=== PATIENT | male | born 1940 | race Caucasian/White ===

== ENCOUNTER 2017-10-08 20:58 | Emergency (ER) | payer OTHER, MEDICARE ==
--- NOTE | 2017-10-08 21:10 | PDOC ---
History of Present Illness - General Stated Complaint: FELL, STRUCK HEAD Time Seen by Provider: 10/08/17 21:06 History Source: Patient Exam Limitations: No Limitations - History of Present Illness Initial Comments: 10/08/17 21:38 This is a 77-year-old male who was ambulating outside when he tripped on a uneven sidewalk and fell striking his right forehead area on the ground. Patient did not pass out. Patient denies any headache, nausea, neck pain or any other injuries. Patient denies any weakness or dizziness, chest pain or difficulty concentrating. Patient is not on any blood thinners. PAST MEDICAL HISTORY: no significant history PAST SURGICAL HISTORY: no significant history FAMILY HISTORY: no pertinant history SOCIAL HISTORY: Pt lives with family and is employed. MEDICATIONS: reviewed ALLERGIES: As per nursing notes Review of Systems General: No fevers or chills, no weakness, no weight loss HEENT: No change in vision. No sore throat,. No ear pain CardioVascular: No chest pain or shortness of breath Respiratory:No cough, or wheezing. Gastrointestinal: no nausea, vomitting, diarrhea or constipation, No rectal bleeding Genitourinary: No dysuria, hematuria, or frequency Musculoskeletal: No joint or muscle pain or swelling Neurologic: No headache, vertigo, dizziness or loss of consciousness Psychiatric: nor depression Skin: No rashes or easy bruising Endocrine: no increased thirst or abnormal weight change Allergic: no skin or latex allergy All other systems reviewed and normal GENERAL: The patient is awake, alert, and fully oriented, in no acute distress. HEAD: There is a contusion and abrasion over the right eyebrow area there is no active bleeding there is no bony tenderness of the orbits Cervical spine: There is non-tenderness on palpation of the cervical spine diffusely there is full range of motion without pain EYES: Pupils equal, round and reactive to light, extraocular movements intact, sclera anicteric, conjunctiva clear. EXTREMITIES: Normal range of motion, no edema. NEUROLOGICAL: Normal speech, normal gait. grossly intact PSYCH: Normal mood, normal affect. SKIN: Warm, Dry, normal turgor, no rashes or lesions noted. 10/08/17 22:[address] negative for any acute intercranial pathology Assessment and plan: This is a 77-year-old male who had a mechanical trip and fall and hit his head. Patient was updated with his tetanus shot and head CT was done which was negative. Patient's family given head injury discharge instructions and patient discharged home. Past History - Past Medical History Allergies/Adverse Reactions: Allergies Allergy/AdvReac Type Severity Reaction Status Date / Time Penicillins Allergy Verified 10/08/17 21:06 tetracycline [Tetracycline] Allergy Verified 10/08/17 21:06 Home Medications: Ambulatory Orders Hydrochlorothiazide [Hctz] 12.5 mg PO DAILY 11/06/12 Imipramine HCl [Tofranil] 50 mg PO HS 11/06/12 Alprazolam [Xanax] 1 mg PO HS 10/08/17 Finasteride 5 mg PO DAILY 10/08/17 Metoprolol Succinate [Toprol Xl] 25 mg PO DAILY 10/08/17 Tamsulosin HCl [Flomax] 0.4 mg PO DAILY 10/08/17 Cancer: Yes (BLADDER) HTN: Yes - Surgical History Cholecystectomy: Yes - Suicide/Smoking/Psychosocial Hx Smoking Status: No Smoking History: Former smoker Number of Cigarettes Smoked Daily: 0 *DC/Admit/Observation/Transfer Diagnosis at time of Disposition: Forehead contusion Qualifiers: Encounter type: initial encounter Qualified Code(s): S00.83XA - Contusion of other part of head, initial encounter Abrasion of forehead Qualifiers: Encounter type: initial encounter Qualified Code(s): S00.81XA - Abrasion of other part of head, initial encounter - Discharge Dispostion Disposition: HOME Condition at time of disposition: Good Admit: No - Referrals Referrals: [facility] [Primary Care Provider] - - Patient Instructions Additional Instructions: Someone should check on you once tonight during the night. You should be arousable to your Normal level of arousability for that time of the night. If you have been vomiting, have had a seizure, or you are unable to be aroused or the person checking on you is concerned that there has been a change in your mental status they should call 911 and have you brought back to the emergency department. You can take Tylenol as needed for pain. Return to the emergency department immediately with ANY new, persistent or worsening symptoms. Continue any medications as previously prescribed by your physician. You should follow up with your primary doctor as soon as possible regarding today's emergency department visit. . Please make sure your doctor reviews the results of your emergency evaluation. Thank you for coming to the Emergency Department today for your care. It was a pleasure to see you today. Please note that your evaluation is INCOMPLETE until you follow-up with your doctor. - Post Discharge Activity
[2017-10-08 21:13] VITALS: BP 170/68; PULSE 73; TEMP 98.2; BMI 25.4
[2017-10-08] MEDS ORDERED: DIPHTH,PERTUSS(ACELL),TET 0.5 ML DISP.SYRIN IM ONE (22:14)
== END 2017-10-08 22:23 | disposition home or self-care (01) ==
LOC: FER 20:58
PROC: 3E0234Z Introduction of Serum, Toxoid and Vaccine into Muscle, Percutaneous Approach (ICD-10-PCS; principal; 2017-10-08)
DX: S00.83XA Contusion of other part of head, initial encounter (principal); S00.81XA Abrasion of other part of head, initial encounter; W18.39XA Other fall on same level, initial encounter; Y92.410 Unspecified street and highway as the place of occurrence of the external cause; Y93.89 Activity, other specified; Z87.891 Personal history of nicotine dependence; I10 Essential (primary) hypertension; Z85.51 Personal history of malignant neoplasm of bladder
CPT/HCPCS: 70450-TC; 90715; 99281-25

== ENCOUNTER 2019-04-06 05:55 | Inpatient (IN) | payer OTHER, MEDICARE ==
[2019-03-29 12:19] VITALS: BMI 26.7
[~2019-04-06 05:55] MED LIST: CEFAZOLIN 2 GM in DEXTROSE 5%-WATER - 50 ML IVPB ONE; TRANEXAMIC ACID 1000 MG/10 ML VIAL IVPUSH ONE
[2019-04-06] MEDS ORDERED: CEFAZOLIN 2 GM in DEXTROSE 5%-WATER - 50 ML IVPB ONE (06:19)
[2019-04-06] MEDS ORDERED: TRANEXAMIC ACID 1000 MG/10 ML VIAL IVPUSH ONE (06:19)
[2019-04-06] MEDS ORDERED: VANCOMYCIN 1,000 MG in DEXTROSE 5%-WATER - 250 ML IVPB ONE (06:19)
[2019-04-06] MEDS ORDERED: MIDAZOLAM HCL 2 MG/2 ML SINGLE DOSE VIAL ONE (06:56)
[2019-04-06] MEDS ORDERED: ROPIVACAINE HCL 0.5% 30ML VIAL ONE (06:56)
[2019-04-06] MEDS ORDERED: VANCOMYCIN 1,000 MG VIAL (RESTRICTED TO ID ONLY) ONE (07:06)
[2019-04-06] MEDS ORDERED: PROPOFOL 20 ML ONE ×2 (07:06→10:08)
[2019-04-06] MEDS ORDERED: ceFAZolin SODIUM 1 GM VIAL ONE ×2 (07:06→10:08)
[2019-04-06] MEDS ORDERED: ONDANSETRON 4 MG/2 ML VIAL ONE (07:06)
[2019-04-06] MEDS ORDERED: ePHEDrine SULFATE 50 MG/1 ML AMPULE ONE (07:11)
[2019-04-06] MEDS ORDERED: PHENYLEPHRINE HCL 10 MG/1 ML SINGLE DOSE VIAL ONE (07:11)
[2019-04-06] MEDS ORDERED: BENZOIN/ALOE VERA/STORAX/TOLU 58 ML BOTTLE ONE (07:25)
--- NOTE | 2019-04-06 07:35 | HP ---
History & Physical Update - History History: No Change - Physical Physical: No Change - Assessment Assessment: No Change - Plan Plan: No Change (no changes since mikhail on 03/14/19.)
[2019-04-06] MEDS ORDERED: BUPIVACAINE HCL/PF 0.5% (5MG/ML) 10 ML VIAL ONE (08:15)
[2019-04-06] MEDS ORDERED: TRANEXAMIC ACID 1000 MG/10 ML VIAL ONE ×2 (08:33→10:27)
[2019-04-06] MEDS ORDERED: SODIUM CHLORIDE 0.9% P/F 10 ML VIAL IJ ONE (08:36)
[2019-04-06] MEDS ORDERED: MAG HYDROX/AL HYDROX/SIMETH 30 ML UNIT-DOSE CUP PO PRN (10:23)
[2019-04-06] MEDS ORDERED: ONDANSETRON 4 MG/2 ML VIAL IVPUSH PRN (10:23)
[2019-04-06] MEDS ORDERED: MAGNESIUM HYDROX 2400MG/30ML ORAL SUSPENSION 30 ML CUP PO PRN (10:23)
[2019-04-06] MEDS ORDERED: DEXAMETHASONE SOD PHOSPHATE 4 MG/1 ML VIAL ONE (10:27)
[2019-04-06] MEDS ORDERED: LACTATED RINGERS SOLUTION 1,000 ML IV SCH (10:30)
--- NOTE | 2019-04-06 11:05 | PN ---
Progress Note (short form) - Note Progress Note: 79M s/p RIGHT total hip replacement POD #0. -Pain control: per anaesthesia team. -DVT PPx: -Chemical: ASA 81mg PO BID x 6 weeks. -Mechanical: NEGRO's, SCD's. -Incentive spirometry q15 min. -PT/OT/Rehab, OOB. -WBAT RLE. -Post-op Ancef x 2 doses. -f/u post-op TOV: 8 hours max. -f/u AM labs. -Diet as tolerated. -Care per medical hospitalist: Dr. Grossman. -Discharge planning: f/u [facility] [place] [facility] 04/14/2019; call for appointment . -Will follow. Colin Anthony MD (Orthopaedic Surgery).
--- NOTE | 2019-04-06 11:08 | OP ---
Operative Note - Note: Operative Date: 04/06/19 Pre-Operative Diagnosis: Right hip DJD Operation: Right total hip replacement Implants: Marylin. Cup - Trident II-Tritanium 54mm. Poly - 36mm, neutral. Stem - Accolade II, 127 deg NSA, #4. Head - 36mm diameter, standard length, Biolox/Delta Ceramic Post-Operative Diagnosis: Same as Pre-op Surgeon: Colin Anthony Diver Tender: Servando Anthony Anesthesiologist/HARDNESS TESTER: Harrison Arthur Anesthesia: Spinal Specimens Removed: Right femoral head Estimated Blood Loss (mls): 100 Fluid Volume Replaced (mls): 1,100 (Crystalloid) Operative Report Dictated: Yes
[2019-04-06] MEDS: ACETAMINOPHEN 325 MG TABLET (FP) PO SCH ×3 (11:50→23:13)
[2019-04-06] MEDS ORDERED: CEFAZOLIN 1 GM/D5W 1 GM/50 ML BAG IVPB SCH (17:00)
[2019-04-06] MEDS: oxyCODONE HCL 5 MG TABLET PO PRN (17:04)
[2019-04-06] MEDS: ceFAZolin 2 GRAM PREMIX BAG IVPB SCH (17:04)
--- NOTE | 2019-04-06 18:39 | HP ---
Admitting History and Physical - Admission Chief Complaint: right hip pain History of Present Illness: 79 yo man with right hip DJD came in for OR with Dr Anthony as his hip pain has been getting worse over time. denies chest pain, palpitations, nausea, vomiting, diarrhea History Source: Patient Limitations to Obtaining History: No Limitations - Past Medical History Cardiovascular: Yes: HTN Psych: Yes: Anxiety - Advance Directives Advance Directives: Yes: Health Care Proxy - Smoking History Smoking history: Never smoked Have you smoked in the past 12 months: No Aproximately how many cigarettes per day: 0 If you are a former smoker, when did you quit?: 1991 - Alcohol/Substance Use Hx Alcohol Use: Yes (wine with dinner) Home Medications - Allergies Allergies/Adverse Reactions: Allergies Allergy/AdvReac Type Severity Reaction Status Date / Time Penicillins Allergy Verified 10/08/17 21:06 tetracycline [Tetracycline] Allergy Verified 10/08/17 21:06 - Home Medications Home Medications: Ambulatory Orders Hydrochlorothiazide [Hctz] 25 mg PO DAILY 11/06/12 Imipramine HCl [Tofranil] 50 mg PO HS 11/06/12 Alprazolam [Xanax] 0.5 mg PO HS 10/08/17 Metoprolol Succinate [Toprol Xl] 25 mg PO DAILY 10/08/17 Glucos Sul 2Kcl/MSM/Chond/C/Mn [Glucosamine Chondroitin Cap] 1 each PO DAILY 11/16 Review of Systems - Review of Systems Constitutional: reports: No Symptoms Eyes: reports: No Symptoms HENT: reports: No Symptoms Neck: reports: No Symptoms Cardiovascular: reports: No Symptoms Respiratory: reports: No Symptoms Gastrointestinal: reports: No Symptoms Genitourinary: reports: No Symptoms Musculoskeletal: reports: Joint Pain Integumentary: reports: No Symptoms Endocrine: reports: No Symptoms Hematology/Lymphatic: reports: No Symptoms Psychiatric: reports: Anxiety Pain Intensity: 7 Physical Examination Vital Signs: Vital Signs Temperature 97.5 F L 04/06/19 11:58 Pulse Rate 58 L 04/06/19 11:58 Respiratory Rate 18 04/06/19 11:58 Blood Pressure 125/56 L 04/06/19 11:58 O2 Sat by Pulse Oximetry (%) 99 04/06/19 11:58 Constitutional: Yes: Well Nourished, Anxious Eyes: Yes: WNL HENT: Yes: WNL Neck: Yes: WNL Cardiovascular: Yes: WNL Respiratory: Yes: WNL Renal/: Yes: WNL Musculoskeletal: Yes: Joint Stiffness Extremities: Yes: WNL Integumentary: Yes: WNL Wound/Incision: Yes: Clean/Dry, Dressing Dry and Intact Neurological: Yes: WNL ...Motor Strength: WNL Psychiatric: Yes: Alert, Oriented Assessment/Plan 79 yo man with Right hip DJD S/P Right total hip replacement POD#0. cont pain manageemnt. incentive spirometry. -GI, DVT prophylaxis. -ID: Ancef given empirically -HTN: on toprol XL, HCTZ -anxiety: cont xanax -cont stool softeners to avoid opioid induced constipation. -chronic iron deficiency anemia: on ferrous sulfate. Pt understands this may exacerbate his constipation. -AM labs ordered -PT/OT/OOB as tolerated -assessment and plan discussed with pt and family at bedside.
[2019-04-06] MEDS ORDERED: PT OWN MED DRAWER 7, Y5N ONE (21:13)
[2019-04-06] MEDS: FERROUS SO4 325 MG TABLET (FP) PO SCH (21:14)
[2019-04-06] MEDS: ASPIRIN 81 MG CHEWABLE TABLETS PO SCH (21:14)
[2019-04-06] MEDS: ALPRAZolam 0.25 MG TABLET PO SCH (21:14)
[2019-04-06] MEDS: SENNOSIDES/DOCUSATE COMBO (SENNA PLUS) TABLET (UD) PO SCH (21:14)
[2019-04-06] MEDS: ASCORBIC ACID 500 MG TABLET (FP) PO SCH (21:14)
[2019-04-06] MEDS: IMIPRAMINE HCL 25 MG TABLET (NON FORMULARY) PO SCH (21:15)
[2019-04-07] MEDS: ceFAZolin 2 GRAM PREMIX BAG IVPB SCH (01:00)
[2019-04-07] MEDS: ACETAMINOPHEN 325 MG TABLET (FP) PO SCH ×2 (04:55→11:31)
[2019-04-07] MEDS: oxyCODONE HCL 5 MG TABLET PO PRN ×3 (04:55→12:47)
[2019-04-07 08:06] LABS: HEMATOCRIT 35.3 % (35.4-49); HEMOGLOBIN 12.2 GM/dl (11.7-16.9); MCH 32.5 pg (25.7-33.7); MCHC 34.4 g/dl (32.0-35.9); MEAN CELL VOLUME 94.3 fl (80-96); MEAN PLT VOLUME 8.6 fl (7.5-11.1); PLATELET COUNT 271 K/MM3 (134-434); RBC 3.75 M/mm3 (4.00-5.60); RDW 13.5 % (11.9-15.9); WHITE BLOOD COUNT 15.7 K/mm3 (4.0-10.8)
[2019-04-07 08:18] LABS: CALCIUM 8.7 mg/dl (8.5-10)
--- NOTE | 2019-04-07 09:23 | OP ---
DATE OF OPERATION: 04/06/2019 PREOPERATIVE DIAGNOSIS: Right hip degenerative joint disease. POSTOPERATIVE DIAGNOSIS: Right hip degenerative joint disease. PROCEDURE PERFORMED: Right total hip replacement via a direct superior approach. SURGEON: Colin Anthony MD ASSISTANTS: Servando Anthony MD, and LINDA Carvajal ANESTHESIOLOGIST: Harrison Arthur MD ANESTHESIA: Spinal and sedation. ESTIMATED BLOOD LOSS: 100 mL. FLUID VOLUME REPLACEE: Crystalloid 1.1 L. Colin Anthony MD DS/[id number]
[2019-04-07] MEDS ORDERED: MULTIVITAMINS (DAILY MVI) TABLET (FP) PO SCH (10:00)
[2019-04-07] MEDS: HYDROCHLOROTHIAZIDE 25 MG TABLET (FP) PO SCH (10:26)
[2019-04-07] MEDS: FERROUS SO4 325 MG TABLET (FP) PO SCH ×2 (10:26→21:05)
[2019-04-07] MEDS: ASPIRIN 81 MG CHEWABLE TABLETS PO SCH ×2 (10:26→21:05)
[2019-04-07] MEDS: PANTOPRAZOLE 40 MG TABLET (FP) PO SCH (10:27)
[2019-04-07] MEDS: metoPROLOL SUCCINATE 25 MG TAB.SR.24H (FP) PO SCH (10:27)
[2019-04-07] MEDS: ASCORBIC ACID 500 MG TABLET (FP) PO SCH ×2 (10:27→21:05)
[2019-04-07] MEDS: SENNOSIDES/DOCUSATE COMBO (SENNA PLUS) TABLET (UD) PO SCH ×2 (10:27→21:06)
--- NOTE | 2019-04-07 11:42 | SPA.POSTOP ---
- POST-OP NOTE POD #1 s/p R total hip replacement Patient resting comfortably. Pain management via prn meds. Denies n/v/f/c, CP or SOB. Last Vital Signs Temp Pulse Resp BP Pulse Ox 98.7 F 76 18 121/49 L 97 04/07/19 06:00 04/07/19 06:00 04/07/19 06:00 04/07/19 06:00 04/07/19 06:00 Physical Exam General: No acute distress. Pulm: Clear to auscultation bilat anteriorly Cor: Regular rhythm Abd: Soft. Non-tender. No distention LE: Soft, non-tender bilat. SCD's bilat. 5/5 dorsi/plantar flexion/EHL. Right Hip: dressing c/d/i CBC, BMP 04/07/19 07:05 04/07/19 07:05 A/P: 79 yo male s/p R total hip replacement OOB and ambulate with PT/assistance Diet as tolerated Oral pain medication for pain management DVT ppx with SCDs, ambulation, aspirin 81 mg bid Repeat CBC in the am D/w Dr. Anthony
--- NOTE | 2019-04-07 15:35 | PN ---
Progress Note (short form) - Note Progress Note: S: Pt. sitting in chair. Ambulating ok. O: VAS 2/10 A/P: POD #1 s/p Right THR 1. Continue pain meds as ordered 2. No anesthetic complications
--- NOTE | 2019-04-07 18:24 | PN ---
Progress Note, Physician Chief Complaint: right hip tenderness - Current Medication List Current Medications: Active Medications Acetaminophen (Tylenol -) 650 mg PO Q6H [facility] Stop: 04/09/19 11:29 Last Admin: 04/07/19 11:31 Dose: 650 mg Al Hydroxide/Mg Hydroxide (Mylanta Oral Suspension -) 30 ml PO Q4H PRN PRN Reason: DYSPEPSIA Alprazolam (Xanax -) 0.5 mg PO HS [facility] Last Admin: 04/06/19 21:14 Dose: 0.5 mg Ascorbic Acid (Vitamin C -) 500 mg PO BID [facility] Last Admin: 04/07/19 10:27 Dose: 500 mg Aspirin (Asa -) 81 mg PO BID [facility] Last Admin: 04/07/19 10:26 Dose: 81 mg Ferrous Sulfate (Feosol -) 325 mg PO BID [facility] Last Admin: 04/07/19 10:26 Dose: 325 mg Hydrochlorothiazide (Hctz -) 25 mg PO DAILY [facility] Last Admin: 04/07/19 10:26 Dose: 25 mg Imipramine HCl (Tofranil -) 50 mg PO [facility] Last Admin: 04/06/19 21:15 Dose: 50 mg Magnesium Hydroxide (Milk Of Magnesia -) 30 ml PO PRN PRN PRN Reason: CONSTIPATION Metoprolol Succinate (Toprol Xl -) 25 mg PO DAILY [facility] Last Admin: 04/07/19 10:27 Dose: 25 mg Ondansetron HCl (Zofran Injection) 4 mg IVPUSH Q6H PRN PRN Reason: NAUSEA Oxycodone HCl (Roxicodone -) 5 mg PO Q3H PRN PRN Reason: PAIN LEVEL 1-5 Last Admin: 04/07/19 04:55 Dose: 5 mg Oxycodone HCl (Roxicodone -) 10 mg PO Q3H PRN PRN Reason: PAIN LEVEL 6-10 Last Admin: 04/07/19 12:47 Dose: 10 mg Pantoprazole Sodium (Protonix -) 40 mg PO DAILY [facility] Last Admin: 04/07/19 10:27 Dose: 40 mg Senna/Docusate Sodium (Pericolace -) 2 tablet PO BID [facility] Last Admin: 04/07/19 10:27 Dose: 2 tablet - Objective Vital Signs: Vital Signs Temperature 98.6 F 04/07/19 15:11 Pulse Rate 81 04/07/19 15:11 Respiratory Rate 20 04/07/19 15:11 Blood Pressure 138/53 L 04/07/19 15:11 O2 Sat by Pulse Oximetry (%) 100 04/07/19 15:11 Constitutional: Yes: Well Nourished, No Distress Eyes: Yes: WNL HENT: Yes: WNL Neck: Yes: WNL Cardiovascular: Yes: WNL Respiratory: Yes: WNL Gastrointestinal: Yes: WNL Genitourinary: Yes: WNL Musculoskeletal: Yes: Joint Stiffness Extremities: Yes: WNL Edema: No Peripheral Pulses WNL: Yes Integumentary: Yes: WNL Wound/Incision: Yes: Clean/Dry, Well Approximated, Dressing Dry and Intact Neurological: Yes: WNL ...Motor Strength: WNL Psychiatric: Yes: WNL Labs: CBC, BMP 04/07/19 07:05 04/07/19 07:05 Assessment/Plan 79 yo man with Right hip DJD S/P Right total hip replacement POD#1. cont pain manageemnt. incentive spirometry. -GI, DVT prophylaxis. -ID: Ancef given empirically -HTN: on toprol XL, HCTZ -anxiety: cont xanax -cont stool softeners to avoid opioid induced constipation. -chronic iron deficiency anemia: on ferrous sulfate. Pt understands this may exacerbate his constipation. -post-op leucocytosis: reactive. will monitor. -PT/OT/OOB as tolerated -assessment and plan discussed with pt and family at bedside.
[2019-04-07] MEDS ORDERED: PT OWN MED DRAWER 7, Y5N ONE (20:55)
[2019-04-07] MEDS: ALPRAZolam 0.25 MG TABLET PO SCH (21:05)
[2019-04-07] MEDS: IMIPRAMINE HCL 25 MG TABLET (NON FORMULARY) PO SCH (21:06)
[2019-04-08] MEDS: ACETAMINOPHEN 325 MG TABLET (FP) PO SCH ×3 (00:13→13:18)
[2019-04-08 02:44] VITALS: PULSE 76
[2019-04-08 06:47] VITALS: BP 134/56; TEMP 98.4
[2019-04-08 08:08] LABS: HEMOGLOBIN 12.5 GM/dl (11.7-16.9); MCH 32.2 pg (25.7-33.7); MCHC 33.8 g/dl (32.0-35.9); MEAN CELL VOLUME 95.3 fl (80-96); MEAN PLT VOLUME 8.6 fl (7.5-11.1); PLATELET COUNT 292 K/MM3 (134-434); RBC 3.88 M/mm3 (4.00-5.60); RDW 13.7 % (11.9-15.9); WHITE BLOOD COUNT 17.1 K/mm3 (4.0-10.8)
[2019-04-08] MEDS: metoPROLOL SUCCINATE 25 MG TAB.SR.24H (FP) PO SCH (09:17)
[2019-04-08] MEDS: FERROUS SO4 325 MG TABLET (FP) PO SCH (09:17)
[2019-04-08] MEDS: ASCORBIC ACID 500 MG TABLET (FP) PO SCH (09:17)
[2019-04-08] MEDS: ASPIRIN 81 MG CHEWABLE TABLETS PO SCH (09:17)
[2019-04-08] MEDS: SENNOSIDES/DOCUSATE COMBO (SENNA PLUS) TABLET (UD) PO SCH (09:17)
[2019-04-08] MEDS: PANTOPRAZOLE 40 MG TABLET (FP) PO SCH (09:17)
[2019-04-08] MEDS: HYDROCHLOROTHIAZIDE 25 MG TABLET (FP) PO SCH (09:17)
--- NOTE | 2019-04-08 09:46 | SPA.POSTOP ---
- POST-OP NOTE POD #2 s/p R THR Patient resting comfortably. Pain management via prn meds. Passing flatus, no BM. Denies n/v/f/c, CP or SOB. Passing flatus, no BM's. Last Vital Signs Temp Pulse Resp BP Pulse Ox 98.4 F 76 18 134/56 L 97 04/08/19 06:00 04/08/19 06:00 04/08/19 08:15 04/08/19 06:00 04/08/19 08:15 Physical Exam General: No acute distress. Pulm: Clear to auscultation bilat anteriorly Cor: Regular rhythm Abd: Soft. Non-tender. slight distended, non-tender. LE: Soft, non-tender bilat. SCD's bilat. Right hip Dressing c/d/i. No ecchymosis. Hip soft. CBC, BMP 04/08/19 07:21 04/07/19 07:05 A/p: 79 yo male s/p total Right hip replacement Doing well surgically, awaiting discharge to home with services. Pain management post-op discussed with the patient, tylenol and narcotics as needed. Stool softners as needed Follow-up with Dr. Anthony next week, leave surgical dressing in place. No showers or baths. D/w Dr. Anthony
--- NOTE | 2019-04-08 12:06 | DS ---
Physical Examination Vital Signs: Vital Signs Temperature 98.4 F 04/08/19 06:00 Pulse Rate 76 04/08/19 06:00 Respiratory Rate 18 04/08/19 08:15 Blood Pressure 134/56 L 04/08/19 06:00 O2 Sat by Pulse Oximetry (%) 97 04/08/19 08:15 Constitutional: Yes: Well Nourished Eyes: Yes: WNL HENT: Yes: WNL Neck: Yes: WNL Cardiovascular: Yes: WNL Respiratory: Yes: WNL Gastrointestinal: Yes: WNL Renal/: Yes: WNL Musculoskeletal: Yes: Joint Stiffness Extremities: Yes: WNL Edema: No Peripheral Pulses WNL: Yes Integumentary: Yes: WNL Wound/Incision: Yes: Clean/Dry, Well Approximated, Dressing Dry and Intact Neurological: Yes: WNL ...Motor Strength: WNL Labs: CBC, BMP 04/08/19 07:21 04/07/19 07:05 Discharge Summary Reason For Visit: RIGHT HIP OSTEOARTHRITIS Hospital Course: 79 yo man with Right hip DJD S/P Right total hip replacement POD#2. cont pain manageemnt. incentive spirometry. -GI, DVT prophylaxis. -ID: Ancef given empirically -HTN: on toprol XL, HCTZ -post-op leucocytosis. afebrile. to monitor outpatient. -anxiety: cont xanax -cont stool softeners to avoid opioid induced constipation. -chronic iron deficiency anemia: on ferrous sulfate. Pt understands this may exacerbate his constipation. -post-op leucocytosis: reactive. will monitor. -PT/OT/OOB as tolerated -assessment and plan discussed with pt and family at bedside. Condition: Good - Instructions Diet, Activity, Other Instructions: Dr. Anthony Discharge Instructions for Hip Replacement Post Operative Instructions Physical activity Physical Therapist will come to your home for the first 5 days. You will be set up with outpatient PT at your first post-operative visit. Use assistive devices for ambulation at all times. Weight bearing as tolerated on your surgical side. Wound care Leave your surgical dressing in place. Do not change the dressing until seen by your surgeon in the office. No baths or showers. Do not submerge your incision. Do not apply any ointments or lotions to your incision. Please call the office if your dressing is soiled/dirty or is falling off. Apply Graduated Compression Stockings (TEDS) to both lower extremities-remove daily for hygiene ONLY. Diet There are no dietary restrictions. Eat healthy, high-fiber foods. Drink 6 to 8 glasses of liquid each day. This will assist in keeping your bowels are regular. Pain management Any pain prescription medication ordered should be taken as prescribed for moderate to severe pain. Do not take additional Tylenol while taking Percocet. Posterior Hip Precautions: Do not cross the leg you had surgery on over your other leg. (Do not cross your legs.)Use an elevated toilet seat. Do not sit on low chairs or beds. Use purple pillow (abductor) when lying in bed. Take Aspirin 81 mg two times a day for a total of 6 weeks to prevent blood clots. Call Dr. Anthony for any of the following: Severe pain not relieved by medication Fever of 101 or higher Excessive bleeding or drainage on dressing Inability to urinate If you experience chest pain or shortness of breath, please seek emergency care immediately. Please call the office at to confirm your post-op appointment for the week following surgery. [facility] checked [phone] Disposition: HOME - Home Medications Comprehensive Discharge Medication List: Ambulatory Orders Hydrochlorothiazide [Hctz -] 25 mg PO DAILY 11/06/12 Imipramine HCl [Tofranil -] 50 mg PO HS 11/06/12 Alprazolam [Xanax] 0.5 mg PO HS 10/08/17 Metoprolol Succinate [Toprol Xl] 25 mg PO DAILY 10/08/17 Glucos Sul 2Kcl/MSM/Chond/C/Mn [Glucosamine Chondroitin Cap] 1 each PO DAILY 11/16 Acetaminophen [Tylenol .Regular Strength -] 1,000 mg PO Q8H tablet 04/08/19 Aspirin [ASA -] 81 mg PO BID #90 tab.chew 04/08/19 Oxycodone HCl 5 mg PO Q6H PRN #30 tablet MDD 6 04/08/19
--- NOTE | 2019-04-08 16:04 | PATH ---
Surgical Pathology Report Patient Name: ADAN WHITESIDE Med. Rec. #: [id number] /Age/Gender: 1940 (Age: 79) / M Account: [id number] Location: [facility] Taken: 04/06/2019 Received: 04/06/2019 Reported: 04/08/2019 Physicians: Colin Anthony M.D. Specimen(s) Received RIGHT FEMORAL HEAD Clinical History Right hip osteoarthritis Final Diagnosis FEMORAL HEAD, RIGHT, TOTAL HIP REPLACEMENT: DEGENERATIVE JOINT DISEASE. Electronically Signed Moon Ojeda M.D. Gross Description Received in formalin, labeled "right femoral head," is a 4.8 x 4.8 x 4.3 cm. femoral head with 1.5 cm in length portion of femoral neck attached. The margin of resection is smooth. There is a 2.5 cm in greatest dimension area of eburnation present. The remaining articular surface is wellington-yellow and diffusely granular and nodular. The underlying trabecular bone is yellow and hard. A dermatology sales representative section is submitted in one cassette, following decalcification. /04/07/2019 [facility]04/07/2019
== END 2019-04-08 13:30 | disposition home or self-care (01) | DRG 470 ==
LOC: FM/S 05:55
PROVIDERS: ADMIT Orthopaedic Surgery Adult Reconstructive Orthopaedic Surgery; ATTEND Internal Medicine
PROC: 0SR903A Replacement of Right Hip Joint with Ceramic Synthetic Substitute, Uncemented, Open Approach (ICD-10-PCS; principal; 2019-04-06 09:07)
DX: M16.11 Unilateral primary osteoarthritis, right hip (principal); I10 Essential (primary) hypertension; D72.829 Elevated white blood cell count, unspecified; F41.9 Anxiety disorder, unspecified; D50.9 Iron deficiency anemia, unspecified
CPT/HCPCS: 36415; 73502-TC-RT-FY; 80048; 85027; 88305-TC; 88311-TC; 94760; 97116-GP; 97162-GP